=== PATIENT | male | born 1970 | race Caucasian/White ===

== ENCOUNTER 2018-04-26 20:54 | Inpatient (IN) | payer BC ==
[~2018-04-26 20:54] MED LIST: ISOVUE-370 76%-LOCM 1 ML ONE
[2018-04-26 21:18] LABS: Bilirubin Negative (Negative); Blood, Urine Negative (Negative); Clarity CLEAR (Clear); Glucose, Urine (Dipstick) Negative (Negative); Leukocyte Negative (Negative); Nitrite Negative (Negative); Protein, Urine (Dipstick) Negative (Neg-Trace); Specific Gravity, Urine 1.023 (1.002-1.036)
[2018-04-26] MEDS ORDERED: Ondansetron PF 4 MG/2 ML Vial ONE (21:41)
[2018-04-26] MEDS ORDERED: Pantoprazole 40 MG VIAL ONE (21:41)
[2018-04-26] MEDS ORDERED: Fentanyl 100 MCG/2 ML VIAL ONE (21:41)
[2018-04-26 21:42] LABS: #Eosinphils 0.1 thou/uL (0.0-0.7); #Lymphocytes 0.8 thou/uL (1.20-3.40); #Monocytes 0.8 thou/uL (0.11-0.59); #Neutrophils 5.3 thou/uL (1.40-6.50); %Monocytes 11.4 % (0.0-10.0); %Neutrophils 75.6 % (42.0-75.0); Hemoglobin 15.9 g/dL (14.0-18.0); Mean Corpuscular HGB CONC 33.1 g/dL (32.0-36.0); Mean Corpuscular Hemoglobin 29.7 pg (27.0-31.0); Mean Corpuscular Volume 89.8 fL (78.0-98.0); Mean Platelet Volume 7.4 fL (7.4-10.4); Platelet Count 214 thou/uL (130-400); RBC Distribution Width 12.6 % (11.5-14.5); Red Blood Cell (RBC) Count 5.36 mill/uL (4.70-6.10); White Blood Cell (WBC) Count 7.1 thou/uL (4.8-10.8)
[2018-04-26 21:56] LABS: ALT (SGPT) 17 U/L (8-55); AST (SGOT) 17 U/L (5-34); Albumin 3.9 g/dL (3.5-5.0); Alkaline Phosphatase 70 U/L (40-150); Anion Gap 8 mmol/L (10-20); BUN (Urea Nitrogen) 14 mg/dL (8.9-20.6); Bilirubin, Total 0.4 mg/dL (0.2-1.2); CK (CPK) 110 U/L (30-200); Calc. Creatinine Clearance 0 mL/min (70-130); Calcium 8.3 mg/dL (7.8-10.44); Carbon Dioxide 24 mmol/L (22-29); Chloride 107 mmol/L (98-107); Estimated GFR-MDRD 85; Globulin 2.9 g/dL (2.4-3.5); Glucose 122 mg/dL (70-105); Lipase 17 U/L (8-78); Potassium 3.3 mmol/L (3.5-5.1); Protein, Total 6.8 g/dL (6.0-8.3); Sodium 136 mmol/L (136-145)
[2018-04-26 22:00] LABS: CKMB 0.7 ng/mL (0-6.6); Troponin I Less than 0.010 ng/mL (< 0.028)
--- NOTE | 2018-04-26 22:22 | CT ---
CT ABDOMEN WITH CONTRAST CT PELVIS WITH CONTRAST 04/26/18 COMPARISON: 03/12/15. HISTORY: Abdominal pain. Vomiting and diarrhea. FINDINGS: ABDOMEN CT: Lung bases are clear. heart size is normal. No pericardial effusion. The descending thoracic aorta an d abdominal aorta has a normal caliber. No periaortic fat stranding. Portal vein is patent. Unremarkable gallbladder. Liver, spleen, pancreas and adrenal glands have appropriate enhancement. There is atrophy at the hea d of the pancreas. No gastrohepatic, retrocrural or periportal lymphadenopathy. Symmetric enhancement of the kidneys. Bilaterally, no obstructive uropathy. No mesenteric mass, lymphadenopathy, free air or free fluid. Umbilical hernia containing mesenteric fat. Limited evaluation of the alimentary canal by the lack of oral contrast. Gastric mucosa, duodenum, an d proximal jejunal loops are unremarkable. There are a few segments of distal jejunum and likely prox imal ileal small bowel loops which are distended and fluid-filled. Air fluid levels are noted. The di stal ileum and terminal ileum are decompressed. Ileocecal junction is normal. There is scattered feca l material in a nondistended, nondilated colon. There is diverticulosis, without evidence of divertic ulitis. Normal caliber appendix is identified. CT PELVIS: No mass, lymphadenopathy, free air or free fluid. Urinary bladder is grossly unremarkable. No lytic o r blastic lesions in the osseous structures. IMPRESSION: Prominent small bowel loops suggesting a partial or early obstructive process. POS: [facility]
[2018-04-26] MEDS ORDERED: Benzocaine 20% Spray 60 ML CAN ONE (22:48)
[2018-04-27] MEDS ORDERED: Ondansetron PF 4 MG/2 ML Vial IVP PRN (01:10)
[2018-04-27] MEDS ORDERED: Ondansetron ODT 4 MG TAB SL PRN (01:10)
[2018-04-27] MEDS: Fentanyl 100 MCG/2 ML VIAL SLOW IVP PRN ×2 (01:40→08:50)
[2018-04-27] MEDS: D5 1/2 NS w/20 mEq KCL 1,000 ML IV SCH ×5 (01:40→22:02)
[2018-04-27 02:50] VITALS: BMI 33.1
[2018-04-27] MEDS ORDERED: Acetaminophen 1,000 MG in Premix Bag 1 BAG IVPB PRN (09:34)
[2018-04-27] MEDS ORDERED: Potassium Chloride 40 MEQ in Premix Bag 1 BAG IVPB SCH (09:45)
[2018-04-27] MEDS ORDERED: Benzocaine 20% Spray 60 ML CAN PO SCH (10:15)
[2018-04-27] MEDS ORDERED: Chloraseptic Spray 180 ml Bottle PO PRN (10:15)
[2018-04-27] MEDS ORDERED: Pantoprazole 40 MG VIAL IVP SCH (10:15)
[2018-04-27] MEDS ORDERED: Cepastat Lozenges 1 LOZ PO PRN (10:15)
--- NOTE | 2018-04-27 11:17 | HP ---
CHIEF COMPLAINT: Abdominal pain. HISTORY: Mr. Julio is a 47-year-old man, who had sudden onset of abdominal pain, waking him from sleep last night around 10:30. He states that he had eaten normally that evening and had not been having any pain or nausea, but when he woke up, he was having severe crampy abdominal pain, radiating from the epigastrium downward as well as nausea. He came into the emergency room where he was diagnosed with a partial small-bowel obstruction by CT. He received pain medication, which helped with the pain. An NG tube was placed, but he had a lot of coughing and gagging with the NG tube placement and coughed it back out of his nose. He states that he has had some abdominal pain, although it is better since being admitted. He has had to use IV pain medication twice. He had several episodes of vomiting at home and describes the pain as sharp. He had hiatal hernia surgery several years ago at [facility] and this was a prolonged surgery, but he has not had any other episodes of obstruction. He has had diarrhea for the past few weeks and has continued to have soft bowel movements up until yesterday. He has passed a lot of gas through the night, but continues to have crampy abdominal pain. He denies hematemesis, coffee-ground emesis, melena, or hematochezia. He denies fevers or chills and states he has, otherwise, been healthy. PAST MEDICAL HISTORY: Reflux, which has been well managed since his hiatal hernia repair. PAST SURGICAL HISTORY: Bilateral inguinal hernia repair, robotic hiatal hernia repair, right leg and right shoulder surgery. PSYCHIATRIC HISTORY: He has a psychiatric history of anxiety and depression and is on escitalopram for this, who states that he used to have panic attacks, but these have been better since starting escitalopram, although he still has frequent episodes of anxiety. SOCIAL HISTORY: He does not smoke, drink, or use illicit drugs. He works as a work from home. ALLERGIES: He has adverse drug reactions to CODEINE and HYDROCODONE, which caused him to be very agitated and confused. OUTPATIENT MEDICATIONS: Include escitalopram and Aleve. REVIEW OF SYSTEMS: Ten-system review of systems is negative except per HPI and frequent anxiety. FAMILY HISTORY: Diabetes in his grandmother, colon cancer in an aunt, hypertension in his father and emphysema in his father. PHYSICAL EXAMINATION: VITAL SIGNS: Patient is afebrile, heart rate 63, respirations 14, 96% saturated on room air, blood pressure 142/83. GENERAL: Reveals an anxious-appearing man in no acute distress. He is not flushed or toxic in appearance. He is not jaundiced or icteric. HEENT: Unremarkable. NECK: Supple, without lymphadenopathy or thyroid nodules. HEART: Regular in its rate and rhythm without murmurs, rubs, or gallops. LUNGS: Clear to auscultation bilaterally. ABDOMEN: Soft and nondistended. Bowel sounds are diminished. He does not have any palpable masses or hernias. He denies any tenderness to palpation, but did just receive pain medications. EXTREMITIES: Warm and well-perfused without edema. NEUROLOGIC: No focal deficits. PSYCHIATRIC: Alert, oriented, and appropriate, but anxious. LABORATORY DATA: White count is normal at 7.1, hematocrit 48, platelets 214. Electrolytes are unremarkable except for potassium, which was low at 3.3 and is being replaced. Glucose is 122. LFTs and lipase are normal and urine is clear. I have reviewed the CT images and I agree with the written report. He appears to have a partial small-bowel obstruction. On my examination, it looks like the transition point is in the right lower quadrant, but it is difficult to determine. He also has a small umbilical hernia containing fat only, which is not clinically evident. ASSESSMENT: Partial small-bowel obstruction. He had an NG tube placed in the emergency room, but coughed that back out, but it was apparently not well secured to the nose and he was having a flare of his anxiety at that time, so declined replacement of the NG tube. He is feeling better this morning, but still having crampy abdominal pain, so I have recommended placement of the NG tube and he is agreeable to this as long as we give him something for his anxiety beforehand. The nurse is going to attempt this. We are going to try a period of bowel rest and decompression to see if we can avoid surgery. If his symptoms improve, we will likely get a contrast study tomorrow or the next day. If he worsens, then surgery will be considered. WILFREDO
[2018-04-27] MEDS: Potassium Chloride 20 MEQ in Premix Bag 1 BAG IVPB SCH ×2 (11:56→12:42)
[2018-04-27] MEDS: Lorazepam 2 MG/ML VIAL SLOW IVP PRN ×2 (11:56→22:24)
--- NOTE | 2018-04-27 14:29 | RAD ---
SINGLE VIEW OF THE UPPER ABDOMEN: COMPARISON: None. HISTORY: NG tube placement. FINDINGS: A single view of the upper abdomen shows a nonspecific, nonobstructed bowel gas pattern. An NG tube is seen in the stomach. IMPRESSION: Nasogastric tube located in the stomach. POS: [facility]
[2018-04-27] MEDS ORDERED: Fentanyl 100 MCG/2 ML VIAL SLOW IVP PRN ×2 (15:42→15:43)
[2018-04-27] MEDS ORDERED: Ondansetron PF 4 MG/2 ML Vial SLOW IVP PRN (15:43)
[2018-04-27] MEDS ORDERED: Clopidogrel Bisulfate 75 MG TAB ONE (18:19)
--- NOTE | 2018-04-28 08:07 | RAD ---
KUB: HISTORY: Small bowel obstruction. COMPARISON: 04/27/2018 FINDINGS: A single view of the abdomen shows a nonspecific, nonobstructive bowel gas pattern. Air is seen thro ughout the colon, to the level of the rectum. No suspicious calcifications are seen. IMPRESSION: Nonobstructive bowel gas pattern. POS: [facility]
[2018-04-28] MEDS ORDERED: Non-Formulary Item 1 EACH (Escitalopram Oxalate [Escitalopram Oxalate] 5 MG) PO SCH (09:00)
[2018-04-28] MEDS ORDERED: Pantoprazole 40 MG VIAL IVP SCH (10:00)
--- NOTE | 2018-04-28 10:15 | PDOC.GSPN ---
Surgery Progress Note: Subj - Subjective Narrative: Feels much better. No nausea or pain since yesterday, passing gas. Abdomen soft, nondistended, bowel sounds present. KUB nonobstructive bowel gas pattern A/P) PSBO, symptomatically better. SBFT today with gastrografin. Recheck K levels. Surgery Progress Note: Obj - Vital signs Vital signs: Vital Signs - Most Recent Temp Pulse Resp BP Pulse Ox 97.7 F 61 18 104/70 94 L 04/28/18 08:31 04/28/18 08:31 04/28/18 08:31 04/28/18 08:31 04/28/18 08:31 Surgery Progress Note: Results - Labs Result Diagrams: 04/26/18 21:27 04/26/18 21:27
[2018-04-28 10:48] LABS: Anion Gap 8 mmol/L (10-20); BUN (Urea Nitrogen) 5 mg/dL (8.9-20.6); Calc. Creatinine Clearance 175 mL/min (70-130); Calcium 8.7 mg/dL (7.8-10.44); Carbon Dioxide 24 mmol/L (22-29); Chloride 108 mmol/L (98-107); Estimated GFR-MDRD Greater than 90; Glucose 97 mg/dL (70-105); Magnesium 2.3 mg/dL (1.6-2.6); Phosphorus 2.1 mg/dL (2.3-4.7); Sodium 136 mmol/L (136-145)
[2018-04-28] MEDS: Escitalopram Oxalate 10 mg Tablet PO SCH (10:53)
[2018-04-28] MEDS: Pantoprazole 40 MG VIAL IVP SCH (10:55)
[2018-04-28] MEDS: D5 1/2 NS w/20 mEq KCL 1,000 ML IV SCH ×3 (13:28→21:05)
--- NOTE | 2018-04-28 15:16 | RAD ---
GASTROGRAFIN SMALL BOWEL: History: Evaluate for small bowel obstruction. Comparison: None. FINDINGS: Initial abdomen radiograph demonstrates prominent air filled loops of small bowel predominately in th e epigastric region. Nasogastric tube is noted. Patient was administered Gastrografin which opacifies prominent small bowel loops. Mid to distal small bowel loops are decompressed. There is contrast in the colon as early as 30 and 45 minute images. IMPRESSION: No evidence of high grade obstruction. POS: [facility]
[2018-04-29] MEDS: D5 1/2 NS w/20 mEq KCL 1,000 ML IV SCH (06:37)
[2018-04-29 08:13] VITALS: BP 106/68; TEMP 98
[2018-04-29] MEDS: Pantoprazole 40 MG VIAL IVP SCH (08:59)
[2018-04-29] MEDS: Escitalopram Oxalate 10 mg Tablet PO SCH (08:59)
--- NOTE | 2018-05-01 10:42 | DIS ---
DISCHARGE DIAGNOSIS: Small-bowel obstruction, resolved. PROCEDURES DURING ADMISSION: IV fluids, NG suction, small bowel follow through. HOSPITAL COURSE: The patient was admitted, given IV fluids and NG suction. He underwent a small bow el follow through that was unremarkable. He is now tolerating liquids well. His bowels are function ing well. He is now discharged home on his usual medications. We will follow up with Dr. Orourke in 2 weeks.
--- NOTE | 2018-05-08 16:58 | EKG ---
Test Reason : Blood Pressure : / mmHG Vent. Rate : 082 BPM Atrial Rate : 082 BPM P-R Int : 136 ms QRS Dur : 094 ms QT Int : 358 ms P-R-T Axes : 067 -12 -04 degrees QTc Int : 418 ms Normal sinus rhythm Voltage criteria for left ventricular hypertrophy Abnormal ECG Confirmed by LINDA MANN, KRISTA ([id number]), photography editor DAVID MACIAS ([id number]) on 05/08/2018 4:58:11 PM Referred By: Confirmed By:KRISTA MCKEON MD
== END 2018-04-29 11:30 | disposition home or self-care (01) | DRG 390 ==
LOC: ERS 20:54 → SURG B 22:37
PROVIDERS: ADMIT Surgery; ATTEND Surgery
PROC: 0D9670Z Drainage of Stomach with Drainage Device, Via Natural or Artificial Opening (ICD-10-PCS; principal; 2018-04-26)
DX: K56.600 Partial intestinal obstruction, unspecified as to cause (principal); K21.9 Gastro-esophageal reflux disease without esophagitis; F32.9 Major depressive disorder, single episode, unspecified; F41.9 Anxiety disorder, unspecified; Z88.5 Allergy status to narcotic agent; Z79.899 Other long term (current) drug therapy; Z79.1 Long term (current) use of non-steroidal anti-inflammatories (NSAID)
CPT/HCPCS: 36415; 74018; 74177; 74250; 80048; 80053; 81003; 82553; 83690; 83735; 84100; 84484; 85025; 93005; 96361; 96374; 96375; C9113; J2060; J2405; J3010; J3480

== ENCOUNTER 2018-08-04 11:45 | Emergency (ER) | payer BC ==
[2018-08-04 12:37] LABS: #Eosinphils 0.2 thou/uL (0.0-0.7); #Monocytes 0.6 thou/uL (0.11-0.59); #Neutrophils 4.6 thou/uL (1.40-6.50); %Basophils 0.4 % (0.0-1.0); %Lymphocytes 15.6 % (21.0-51.0); %Monocytes 9.6 % (0.0-10.0); %Neutrophils 71.4 % (42.0-75.0); Hemoglobin 16.9 g/dL (14.0-18.0); Mean Corpuscular HGB CONC 32.8 g/dL (32.0-36.0); Mean Corpuscular Hemoglobin 29.4 pg (27.0-31.0); Mean Corpuscular Volume 89.6 fL (78.0-98.0); Mean Platelet Volume 7.3 fL (7.4-10.4); Platelet Count 234 thou/uL (130-400); RBC Distribution Width 12.7 % (11.5-14.5); Red Blood Cell (RBC) Count 5.73 mill/uL (4.70-6.10); White Blood Cell (WBC) Count 6.5 thou/uL (4.8-10.8)
[2018-08-04 12:58] LABS: ALT (SGPT) 21 U/L (8-55); AST (SGOT) 19 U/L (5-34); Albumin 4.3 g/dL (3.5-5.0); Alkaline Phosphatase 91 U/L (40-150); Anion Gap 9 mmol/L (10-20); BUN (Urea Nitrogen) 13 mg/dL (8.9-20.6); Bilirubin, Total 0.4 mg/dL (0.2-1.2); Calc. Creatinine Clearance 0 mL/min (70-130); Calcium 9.6 mg/dL (7.8-10.44); Carbon Dioxide 26 mmol/L (22-29); Chloride 106 mmol/L (98-107); Estimated GFR-MDRD Greater than 90; Globulin 3.1 g/dL (2.4-3.5); Glucose 86 mg/dL (70-105); Lipase 24 U/L (8-78); Potassium 4.3 mmol/L (3.5-5.1); Protein, Total 7.4 g/dL (6.0-8.3); Sodium 137 mmol/L (136-145)
[2018-08-04 13:48] LABS: Bilirubin Negative (Negative); Blood, Urine Negative (Negative); Clarity CLEAR (Clear); Glucose, Urine (Dipstick) Negative (Negative); Leukocyte Negative (Negative); Nitrite Negative (Negative); Protein, Urine (Dipstick) Negative (Neg-Trace); Specific Gravity, Urine 1.018 (1.002-1.036); pH, Urine 6.5 (5.0-9.0)
== END 2018-08-04 14:20 | disposition home or self-care (01) ==
LOC: ERS 11:45
DX: R11.0 Nausea (principal); R63.4 Abnormal weight loss; K21.9 Gastro-esophageal reflux disease without esophagitis; F41.9 Anxiety disorder, unspecified; F32.9 Major depressive disorder, single episode, unspecified
CPT/HCPCS: 80053; 81003; 83690; 85025; 93005

== ENCOUNTER 2018-08-06 10:47 | Observation (INO) | payer BC ==
--- NOTE | 2018-08-06 11:21 | RAD ---
CHEST 1 VIEW: HISTORY: Nausea. Dyspnea. COMPARISON: 11/25/2006. FINDINGS: Cardiac silhouette is magnified by projection and upper limits of normal in size. Pulmonary vasculat ure is unremarkable. Mediastinum is midline. No lobar consolidation or evidence of pneumothorax. IMPRESSION: No active cardiopulmonary abnormalities are demonstrated. POS: [facility]
[2018-08-06 11:42] LABS: #Eosinphils 0.2 thou/uL (0.0-0.7); #Lymphocytes 1.3 thou/uL (1.20-3.40); #Monocytes 0.5 thou/uL (0.11-0.59); #Neutrophils 4.1 thou/uL (1.40-6.50); %Basophils 0.4 % (0.0-1.0); %Eosinophils 3.5 % (0.0-10.0); %Lymphocytes 20.5 % (21.0-51.0); %Monocytes 8.4 % (0.0-10.0); %Neutrophils 67.2 % (42.0-75.0); Hemoglobin 16.8 g/dL (14.0-18.0); Mean Corpuscular HGB CONC 33.1 g/dL (32.0-36.0); Mean Corpuscular Hemoglobin 29.6 pg (27.0-31.0); Mean Corpuscular Volume 89.3 fL (78.0-98.0); Mean Platelet Volume 7.2 fL (7.4-10.4); Platelet Count 241 thou/uL (130-400); RBC Distribution Width 12.6 % (11.5-14.5); Red Blood Cell (RBC) Count 5.69 mill/uL (4.70-6.10); White Blood Cell (WBC) Count 6.2 thou/uL (4.8-10.8)
--- NOTE | 2018-08-06 11:52 | CT ---
CT HEAD NONCONTRAST: HISTORY: Altered mental status. Syncope. COMPARISON: 05/15/2010. FINDINGS: There is no evidence of acute intracranial hemorrhage or infarct. Ventricles appear normal in size, shape, and position. There is no mass effect or shift of midline structures. IMPRESSION: No acute intracranial abnormalities are demonstrated. POS: [facility]
[2018-08-06] MEDS ORDERED: Acetaminophen 325 MG TAB PO PRN ×2 (12:00→15:42)
[2018-08-06] MEDS ORDERED: Ondansetron PF 4 MG/2 ML Vial IVP PRN ×2 (12:00→15:42)
[2018-08-06] MEDS ORDERED: Ondansetron ODT 4 MG TAB SL PRN (12:00)
[2018-08-06 12:07] LABS: ALT (SGPT) 20 U/L (8-55); AST (SGOT) 17 U/L (5-34); Albumin 4.4 g/dL (3.5-5.0); Alkaline Phosphatase 91 U/L (40-150); Anion Gap 14 mmol/L (10-20); BUN (Urea Nitrogen) 11 mg/dL (8.9-20.6); Bilirubin, Total 0.4 mg/dL (0.2-1.2); Calc. Creatinine Clearance 0 mL/min (70-130); Calcium 9.6 mg/dL (7.8-10.44); Carbon Dioxide 23 mmol/L (22-29); Chloride 106 mmol/L (98-107); Estimated GFR-MDRD Greater than 90; Globulin 3.1 g/dL (2.4-3.5); Glucose 89 mg/dL (70-105); Potassium 4.1 mmol/L (3.5-5.1); Protein, Total 7.5 g/dL (6.0-8.3); Sodium 139 mmol/L (136-145)
[2018-08-06] MEDS ORDERED: Aspirin Chewable 81 MG TAB ONE (12:27)
[2018-08-06 12:46] LABS: Bilirubin Negative (Negative); Blood, Urine Negative (Negative); Clarity CLEAR (Clear); Glucose, Urine (Dipstick) Negative (Negative); Leukocyte Negative (Negative); Nitrite Negative (Negative); Protein, Urine (Dipstick) Negative (Neg-Trace); Specific Gravity, Urine 1.022 (1.002-1.036); pH, Urine 7.5 (5.0-9.0)
[2018-08-06 12:56] LABS: Amphetamine Not Detected (NotDetected); Barbiturates Screen Not Detected (NotDetected); Benzodiazepine Screen Not Detected (NotDetected); Cocaine Metabolite Screen Not Detected (NotDetected); Medtox Control Line Valid? VALID (VALID); Medtox Reader # READER 4; Methadone Not Detected (NotDetected); Methamphetamine Not Detected (NotDetected); Opiate Screen Not Detected (NotDetected); Oxycodone Screen Not Detected (NotDetected); Phencyclidine (PCP) Not Detected (NotDetected); THC/Cannabinoid Screen Not Detected (NotDetected); Tricyclic Screen Not Detected (NotDetected)
--- NOTE | 2018-08-06 13:29 | HP ---
PRIMARY CARE PHYSICIAN: [facility] Call admission. REASON FOR ADMISSION: Syncope. HISTORY OF PRESENT ILLNESS: A 47-year-old male, who has underlying history of depression, who presented to emergency room on Tuesday, at that time he was having nausea, vomiting, dizziness, confusion, and weakness. At that time, the patient had no investigation and the patient was discharged home because all workup were negative. Today, the patient had 2 syncopal episodes per . The patient continued to complain of headache over occiput. He denies any unsteadiness. He denies any tinnitus. He denies any fever or chills. He denies any current nausea or vomiting. He does not have any chest pain or palpitation. He denies any abdominal pain, constipation, diarrhea, melena, or hematochezia. Currently, the patient's only complaint is some headache on occiput. He feels weak. He was confused on Tuesday. He was having hard time finding things. His speech was almost always normal. REVIEW OF SYSTEMS: CONSTITUTIONAL: Negative for weight loss or gain, ability to conduct usual activities. SKIN: Negative for rash, itching. EYES: Negative for double vision, pain. ENT/MOUTH: Negative for nose bleeding, neck stiffness, pain, tenderness. CARDIOVASCULAR: Negative for palpitations, dyspnea on exertion, orthopnea. RESPIRATORY: Negative for shortness of breath, wheezing, cough, hemoptysis, fever or night sweats. GASTROINTESTINAL: Negative for poor appetite, abdominal pain, heartburn, nausea, vomiting, constipation, or diarrhea. GENITOURINARY: Negative for urgency, frequency, dysuria, nocturia. MUSCULOSKELETAL: Negative for pain, swelling. NEUROLOGIC/PSYCHIATRIC: Negative for anxiety, depression. ALLERGY/IMMUNOLOGIC: Negative for skin rash, bleeding tendency. Please see my HPI for pertinent positives and negatives. All other review of systems reviewed and negative except as mentioned in HPI. PAST MEDICAL HISTORY: Gastroesophageal reflux disease, history of bowel obstruction, and history of hypertension. PAST SURGICAL HISTORY: Bilateral hiatal hernia repair, steel sabine in right leg, and right shoulder surgery. PAST PSYCHIATRIC HISTORY: Anxiety and depression. SOCIAL HISTORY: The patient is , lives at home with . No history of tobacco, alcohol, or illicit drug abuse. FAMILY HISTORY: No family history of coronary artery disease, stroke, or cancer. ALLERGIES: THE PATIENT IS ALLERGIC TO CODEINE AND HYDROCODONE. CURRENT HOME MEDICATIONS: Lexapro 5 mg p.o. daily. EMERGENCY ROOM COURSE: Reviewed. PHYSICAL EXAMINATION: VITAL SIGNS: Currently, blood pressure 135/82, pulse 68, respiratory rate 16, temperature 98.2, and saturation 97% on room air. Weight 105.2 kg. GENERAL: The patient is currently alert and awake, in no obvious acute distress. HEENT: Head; normocephalic and atraumatic. Eyes; pupils round and reactive to light. Extraocular muscle intact. No nystagmus. ENT; oropharynx within normal limits. Moist mucous membranes. No oral lesion. No pharyngeal erythema. No exudate. NECK: Supple. No JVD. No thyromegaly. No carotid bruit. No jugular venous distention. LUNGS: Clear to auscultation without any rhonchi or rales. CARDIAC: S1 and S2, regular without any murmur. ABDOMEN: Soft. Bowel sounds present. Nontender. Nondistended. No organomegaly. No mass. No suprapubic tenderness. BACK: Unremarkable. No CVA tenderness. EXTREMITIES: Upper extremities; passive movement of all joints is normal. Lower extremity, no edema. Good distal pulsation. SKIN: No skin rash. HEMATOLOGIC: No lymphadenopathy. NEUROLOGIC: The patient is alert and oriented x3. Cranial nerve 2 through 12 intact. Motor 5/5 in all four limbs. Sensation bilaterally symmetrical. No cerebellar sign. Reflexes bilaterally symmetrical. Speech normal. Plantar bilateral flexor. SIGNIFICANT LABORATORY DATA: CT of brain based on my review, no acute intracranial process. Chest x-ray based on my review, no acute cardiopulmonary process. BMP; sodium 139, potassium 4.1, chloride 106, carbon dioxide 23, anion gap 14, BUN 11, creatinine 0.84, glucose 89, calcium 9.6. LFT; protein 7.5, albumin 4.4, AST 17, ALT 20, alkaline phosphatase 91. CBC; WBC 6.2, hemoglobin 16.8, and platelet 241. Troponin negative. Urinalysis normal. EKG showing normal sinus rhythm. ASSESSMENT AND PLAN: 1. Recurrent syncope, unexplained. At this point, the patient will need more further investigation. We will do MRI of brain, carotid Doppler, echocardiography, cardiac monitoring, and orthostatic vitals to define any etiology of syncope. We will check lipid profile and start aspirin 81 mg p.o. daily. We will check urine drug screen. 2. Depression. We will continue Lexapro 5 mg p.o. daily. 3. Deep venous thrombosis prophylaxis not needed because we are expecting discharge tomorrow. After all investigation if negative, discharge. 4. Gastrointestinal prophylaxis, Pepcid 20 mg p.o. b.i.d. CODE STATUS: The patient is full code. DISPOSITION PLAN: Based on above-mentioned investigation result, likely within 24 hours. Job ID: [id number]
[2018-08-06] MEDS ORDERED: Eucerin (Mineral Oil/Petrolatum,White) 30 gm Jar TOP PRN (15:42)
[2018-08-06] MEDS ORDERED: Sodium Chloride 0.65% Nasal 44 ML BOT EA NARE PRN (15:42)
[2018-08-06] MEDS ORDERED: Zolpidem Tartrate 5 MG TAB PO PRN (15:42)
[2018-08-06] MEDS ORDERED: Senokot S 8.6-50 MG TAB PO PRN (15:42)
[2018-08-06] MEDS ORDERED: Loperamide HCl 2 MG CAP PO PRN (15:42)
[2018-08-06] MEDS ORDERED: Artificial Tears 18 DROP/0.9 ML EA EYE PRN (15:42)
[2018-08-06] MEDS ORDERED: Loratadine 10 MG TAB PO PRN (15:42)
[2018-08-06] MEDS ORDERED: Cepastat Lozenges 1 LOZ PO PRN (15:42)
[2018-08-06] MEDS ORDERED: Ondansetron ODT 4 MG TAB PO PRN (15:42)
[2018-08-06] MEDS ORDERED: Bisacodyl 10 MG SUPP PR PRN (15:42)
[2018-08-06] MEDS ORDERED: Diabetic Tussin 200 MG/10 ML UDCUP PO PRN (15:42)
[2018-08-06] MEDS ORDERED: Calcium Carbonate 500 MG ChewTAB PO PRN (15:42)
[2018-08-06] MEDS ORDERED: hydrALAZINE 20 MG/ML VIAL SLOW IVP PRN (15:42)
[2018-08-06 15:45] VITALS: BMI 32.0
[2018-08-06] MEDS: Famotidine 20 MG TAB PO SCH (19:26)
--- NOTE | 2018-08-06 22:51 | ULT ---
ULTRASOUND CAROTID DOPPLER: Comparison: 2009 Technique: Real-time grayscale, color doppler and spectral analysis of the extracranial carotid and v ertebral arteries was performed. FINDINGS: Antegrade flow of both vertebral arteries. No elevated peak systolic velocities within the internal c arotid arteries. Mild atherosclerotic plaque, both carotid bulbs. IMPRESSION: No hemodynamically significant stenosis. POS: [facility]
[2018-08-07 05:13] LABS: #Basophils 0.1 thou/uL (0.0-0.2); #Eosinphils 0.3 thou/uL (0.0-0.7); #Lymphocytes 1.8 thou/uL (1.20-3.40); #Monocytes 0.7 thou/uL (0.11-0.59); #Neutrophils 4.3 thou/uL (1.40-6.50); %Basophils 0.9 % (0.0-1.0); %Lymphocytes 25.5 % (21.0-51.0); %Monocytes 9.8 % (0.0-10.0); %Neutrophils 59.9 % (42.0-75.0); Hemoglobin 15.5 g/dL (14.0-18.0); Mean Corpuscular Hemoglobin 29.6 pg (27.0-31.0); Mean Corpuscular Volume 89.7 fL (78.0-98.0); Mean Platelet Volume 7.5 fL (7.4-10.4); Platelet Count 227 thou/uL (130-400); RBC Distribution Width 12.6 % (11.5-14.5); Red Blood Cell (RBC) Count 5.22 mill/uL (4.70-6.10); White Blood Cell (WBC) Count 7.2 thou/uL (4.8-10.8)
[2018-08-07 05:48] LABS: Anion Gap 11 mmol/L (10-20); BUN (Urea Nitrogen) 10 mg/dL (8.9-20.6); Calc. Creatinine Clearance 151 mL/min (70-130); Calcium 9.2 mg/dL (7.8-10.44); Carbon Dioxide 23 mmol/L (22-29); Cardiac Risk 5.3 (Less than 4.5); Chloride 106 mmol/L (98-107); Cholesterol 207 mg/dl (< 200 Desired); Estimated GFR-MDRD Greater than 90; Glucose 85 mg/dL (70-105); HDL Cholesterol 39 mg/dL (>60 Neg Risk); LDL Cholesterol, Calculated 143 mg/dL; Potassium 3.7 mmol/L (3.5-5.1); Sodium 136 mmol/L (136-145); Triglycerides 127 mg/dL (Less than 150)
[2018-08-07] MEDS: Famotidine 20 MG TAB PO SCH ×2 (08:51→19:58)
[2018-08-07] MEDS: Aspirin Chewable 81 MG TAB PO SCH (08:51)
[2018-08-07] MEDS: Escitalopram Oxalate 10 mg Tablet PO SCH (08:51)
--- NOTE | 2018-08-07 09:45 | PDOC.PN ---
- Subjective Encounter Start Date: 08/07/18 Encounter Start Time: 08:30 -: old records requested/rev Patient seen and examined. No new complaints. No overnight events - Objective Resuscitation Status - Order Detail: 08/06/18 12:19 Resuscitation Status Routine Resuscitation Status: FULL: Full Resuscitation MAR Reviewed: Yes Vital Signs & Weight: Vital Signs (12 hours) Temp Pulse Resp BP BP Pulse Ox 08/07/18 08:00 98.4 F 82 20 106/60 92 L 08/07/18 03:26 97.6 F 59 L 16 129/71 93 L Weight Weight 229 lb 6.4 oz I&O: 08/06/18 08/07/18 08/08/18 06:59 06:59 06:59 Intake Total 580 Balance 580 Result Diagrams: 08/07/18 04:32 08/07/18 04:32 Radiology Reviewed by me: Yes EKG Reviewed by me: Yes (nsr) Phys Exam - Physical Examination Constitutional: NAD HEENT: PERRLA, moist MMs, sclera anicteric Neck: no JVD, supple Respiratory: no wheezing, no rales, no rhonchi Cardiovascular: RRR, no significant murmur, no rub Gastrointestinal: soft, non-tender, no distention, positive bowel sounds Musculoskeletal: no edema, pulses present Neurological: non-focal, normal sensation, moves all 4 limbs Lymphatic: no nodes Psychiatric: normal affect, A&O x 3 Skin: no rash, normal turgor Dx/Plan (1) Syncope Code(s): R55 - SYNCOPE AND COLLAPSE Status: Acute (2) Anxiety and depression Code(s): F41.9 - ANXIETY DISORDER, UNSPECIFIED; F32.9 - MAJOR DEPRESSIVE DISORDER, SINGLE EPISODE, UNSPECIFIED Status: Chronic (3) Obesity (BMI 30.0-34.9) Code(s): E66.9 - OBESITY, UNSPECIFIED Status: Chronic - Plan cont current plan of care * medication reviewed as below * symptomatic treatment * today mRI and echo * possible discharge later today. Review of Systems - Review of Systems ENT: negative: Ear Pain, Ear Discharge, Nose Pain, Nose Discharge, Nose Congestion, Mouth Pain, Mouth Swelling, Throat Pain, Throat Swelling, Other Respiratory: negative: Cough, Dry, Shortness of Breath, Hemoptysis, SOB with Excertion, Pleuritic Pain, Sputum, Wheezing Cardiovascular: negative: chest pain, palpitations, orthopnea, paroxysmal nocturnal dyspnea, edema, light headedness, other Gastrointestinal: negative: Nausea, Vomiting, Abdominal Pain, Diarrhea, Constipation, Melena, Hematochezia, Other Genitourinary: negative: Dysuria, Frequency, Incontinence, Hematuria, Retention , Other Musculoskeletal: negative: Neck Pain, Shoulder Pain, Arm Pain, Back Pain, Hand Pain, Leg Pain, Foot Pain, Other - Medications/Allergies Allergies/Adverse Reactions: Allergies Allergy/AdvReac Type Severity Reaction Status Date / Time codeine Allergy Verified 08/06/18 16:09 hydrocodone Allergy Verified 08/06/18 16:09 Medications: Current Medications Acetaminophen (Tylenol) 650 mg PO Q4H PRN PRN Reason: Headache/Fever/Mild Pain (1-3) Last Admin: 08/06/18 19:26 Dose: 650 mg Artificial Tears (Tears Naturale) 2 drop EA EYE PRN PRN PRN Reason: Dry Eyes Aspirin (Aspirin Chewable) 81 mg PO DAILY [facility] Last Admin: 08/07/18 08:51 Dose: 81 mg Bisacodyl (Dulcolax) 10 mg MS DAILYPRN PRN PRN Reason: Constipation Calcium Carbonate (Tums) 1,000 mg PO Q4H PRN PRN Reason: Heartburn or Indigestion Escitalopram Oxalate (Lexapro) 5 mg PO DAILY [facility] Last Admin: 08/07/18 08:51 Dose: 5 mg Famotidine (Pepcid) 20 mg PO BID [facility] Last Admin: 08/07/18 08:51 Dose: 20 mg Guaifenesin (Robitussin Sf) 200 mg PO Q4H PRN PRN Reason: Cough Hydralazine HCl (Apresoline) 10 mg SLOW IVP Q4H PRN PRN Reason: SBP > 180 and HR < 70 Loperamide HCl (Imodium) 2 mg PO PRN PRN PRN Reason: Diarrhea/Loose Stools Loratadine (Claritin) 10 mg PO DAILYPRN PRN PRN Reason: Sinus Symptoms Mineral Oil/White Petrolatum (Eucerin Cream) 0 gm TOP BIDPRN PRN PRN Reason: Dry Skin Ondansetron HCl (Zofran Odt) 4 mg PO Q6H PRN PRN Reason: Nausea/Vomiting Ondansetron HCl (Zofran) 4 mg IVP Q6H PRN PRN Reason: Nausea/Vomiting Senna/Docusate Sodium (Senokot S) 2 tab PO BID PRN PRN Reason: Constipation Sodium Chloride ([place] Nasal [place] 0.65%) 0 ml EA NARE QIDPRN PRN PRN Reason: Nasal Congestion Throat Lozenges (Cepastat Lozenges) 1 olivia PO Q2H PRN PRN Reason: Sore Throat Zolpidem Tartrate (Ambien) 5 mg PO HSPRN PRN PRN Reason: Insomnia
[2018-08-07] MEDS: Lorazepam 2 MG/ML VIAL SLOW IVP SCH ×2 (14:12→14:36)
[2018-08-07] MEDS ORDERED: Lorazepam 2 MG/ML VIAL ONE (14:30)
--- NOTE | 2018-08-07 15:18 | DIS ---
DATE OF ADMISSION: 08/06/2018 DATE OF DISCHARGE: 08/07/2018 PRIMARY CARE PHYSICIAN: Dr. Shashank Carrillo. DISCHARGE DISPOSITION: Home. PRIMARY DISCHARGE DIAGNOSIS: Syncope, unexplained. SECONDARY DISCHARGE DIAGNOSES: 1. Anxiety and depression. 2. obesity with BMI 32. PRIMARY PROCEDURE/OPERATION: None. RADIOLOGICAL INVESTIGATION: Chest x-ray normal. CT brain negative. Carotid Doppler negative. MRI brain is done and result is pending. Echocardiography done and result is pending. SIGNIFICANT LABORATORY DATA: CBC normal. BMP normal. LFT normal. LDL 143. Urinalysis normal. Urine drug screen negative. DISCHARGE MEDICATIONS: The patient will continue his Lexapro 5 mg p.o. daily. The patient will follow up with primary care physician after dietary and exercise trial if he needs any statin therapy. CONTRAINDICATION: None. CODE STATUS: Full code. INPATIENT PLASTICS WORKER: None. ALLERGIES: HYDROCODONE AND CODEINE. DISCHARGE PLAN: Posthospital, the patient will follow up with primary care physician. HOSPITAL COURSE: A 47-year-old male with above-mentioned medical problem. The patient admitted for syncopal workup. Please see my HPI for further details. All investigation done in the hospital came back negative including telemetry. His syncope is unexplained. By the time of dictation, MRI report and echocardiography report are pending. If these tests are negative, then we will consider discharging him home later on today. Dietary instruction is given for his high cholesterol, and if needed, he will start statin therapy after followup with primary care physician. Please see my progress note from today for further detail. Job ID: [id number]
--- NOTE | 2018-08-07 16:12 | MRI ---
MRI BRAIN: HISTORY: Syncope. Head trauma. COMPARISON: 08/07/2018 TECHNIQUE: Multiplanar, multisequence, noncontrast-enhanced MR images of the brain obtained. FINDINGS: Noncontrast-enhanced MR images of the brain demonstrate motion artifact. No evidence of acute intrac ranial masses, hemorrhages, strokes, or contusions seen. Ventricles are of normal size. No evidence of areas of diffusion restriction seen. No significant evidence of acute intracranial pathology seen. IMPRESSION: 1. Deep white matter ischemic changes and motion artifact. 2. No evidence of acute intracranial pathology seen. POS: [facility]
[2018-08-08 08:00] VITALS: BP 108/58; TEMP 98.2
[2018-08-08] MEDS: Escitalopram Oxalate 10 mg Tablet PO SCH (08:33)
[2018-08-08] MEDS: Aspirin Chewable 81 MG TAB PO SCH (08:33)
[2018-08-08] MEDS: Famotidine 20 MG TAB PO SCH (08:33)
--- NOTE | 2018-08-08 09:34 | PDOC.PN ---
- Subjective Encounter Start Date: 08/08/18 Encounter Start Time: 07:30 Patient seen and examined. No new complaints. No overnight events - Objective Resuscitation Status - Order Detail: 08/06/18 12:19 Resuscitation Status Routine Resuscitation Status: FULL: Full Resuscitation MAR Reviewed: Yes Vital Signs & Weight: Vital Signs (12 hours) Temp Pulse Resp BP Pulse Ox 08/08/18 07:32 98.2 F 64 15 108/58 L 93 L 08/08/18 03:20 97.5 F L 57 L 16 111/65 93 L Weight Weight 229 lb 6.4 oz I&O: 08/07/18 08/08/18 08/09/18 06:59 06:59 06:59 Intake Total 580 600 Balance 580 600 Result Diagrams: 08/07/18 04:32 08/07/18 04:32 Radiology Reviewed by me: Yes (echo and MRI reviewed) EKG Reviewed by me: Yes (nsr) Phys Exam - Physical Examination Constitutional: NAD HEENT: PERRLA, moist MMs, sclera anicteric Neck: no JVD, supple Respiratory: no wheezing, no rales, no rhonchi Cardiovascular: RRR, no significant murmur, no rub Gastrointestinal: soft, non-tender, no distention, positive bowel sounds Musculoskeletal: no edema, pulses present Neurological: non-focal, normal sensation, moves all 4 limbs Lymphatic: no nodes Psychiatric: normal affect, A&O x 3 Skin: no rash, normal turgor Dx/Plan (1) Syncope Code(s): R55 - SYNCOPE AND COLLAPSE Status: Acute (2) Anxiety and depression Code(s): F41.9 - ANXIETY DISORDER, UNSPECIFIED; F32.9 - MAJOR DEPRESSIVE DISORDER, SINGLE EPISODE, UNSPECIFIED Status: Chronic (3) Obesity (BMI 30.0-34.9) Code(s): E66.9 - OBESITY, UNSPECIFIED Status: Chronic - Plan cont current plan of care * MRI is negative for acute process * Echo showed mild/moderate MR, will need follow up * medication reviewed as below * symptomatic treatment * stable for discharge * see discharge summery. Review of Systems - Review of Systems ENT: negative: Ear Pain, Ear Discharge, Nose Pain, Nose Discharge, Nose Congestion, Mouth Pain, Mouth Swelling, Throat Pain, Throat Swelling, Other Respiratory: negative: Cough, Dry, Shortness of Breath, Hemoptysis, SOB with Excertion, Pleuritic Pain, Sputum, Wheezing Cardiovascular: negative: chest pain, palpitations, orthopnea, paroxysmal nocturnal dyspnea, edema, light headedness, other Gastrointestinal: negative: Nausea, Vomiting, Abdominal Pain, Diarrhea, Constipation, Melena, Hematochezia, Other Genitourinary: negative: Dysuria, Frequency, Incontinence, Hematuria, Retention , Other Musculoskeletal: negative: Neck Pain, Shoulder Pain, Arm Pain, Back Pain, Hand Pain, Leg Pain, Foot Pain, Other - Medications/Allergies Allergies/Adverse Reactions: Allergies Allergy/AdvReac Type Severity Reaction Status Date / Time codeine Allergy Verified 08/06/18 16:09 hydrocodone Allergy Verified 08/06/18 16:09 Medications: Current Medications Acetaminophen (Tylenol) 650 mg PO Q4H PRN PRN Reason: Headache/Fever/Mild Pain (1-3) Last Admin: 08/06/18 19:26 Dose: 650 mg Artificial Tears (Tears Naturale) 2 drop EA EYE PRN PRN PRN Reason: Dry Eyes Aspirin (Aspirin Chewable) 81 mg PO DAILY [facility] Last Admin: 08/08/18 08:33 Dose: 81 mg Bisacodyl (Dulcolax) 10 mg [place] DAILYPRN PRN PRN Reason: Constipation Calcium Carbonate (Tums) 1,000 mg PO Q4H PRN PRN Reason: Heartburn or Indigestion Escitalopram Oxalate (Lexapro) 5 mg PO DAILY [facility] Last Admin: 08/08/18 08:33 Dose: 5 mg Famotidine (Pepcid) 20 mg PO BID [facility] Last Admin: 08/08/18 08:33 Dose: 20 mg Guaifenesin (Robitussin Sf) 200 mg PO Q4H PRN PRN Reason: Cough Hydralazine HCl (Apresoline) 10 mg SLOW IVP Q4H PRN PRN Reason: SBP > 180 and HR < 70 Loperamide HCl (Imodium) 2 mg PO PRN PRN PRN Reason: Diarrhea/Loose Stools Loratadine (Claritin) 10 mg PO DAILYPRN PRN PRN Reason: Sinus Symptoms Mineral Oil/White Petrolatum (Eucerin Cream) 0 gm TOP BIDPRN PRN PRN Reason: Dry Skin Ondansetron HCl (Zofran Odt) 4 mg PO Q6H PRN PRN Reason: Nausea/Vomiting Ondansetron HCl (Zofran) 4 mg IVP Q6H PRN PRN Reason: Nausea/Vomiting Senna/Docusate Sodium (Senokot S) 2 tab PO BID PRN PRN Reason: Constipation Sodium Chloride ([place] Nasal [place] 0.65%) 0 ml EA NARE QIDPRN PRN PRN Reason: Nasal Congestion Throat Lozenges (Cepastat Lozenges) 1 olivia PO Q2H PRN PRN Reason: Sore Throat Zolpidem Tartrate (Ambien) 5 mg PO HSPRN PRN PRN Reason: Insomnia
--- NOTE | 2018-08-08 11:11 | DIS ---
DATE OF ADMISSION: 08/06/2018 DATE OF DISCHARGE: 08/08/2018 ADDENDUM: The patient was planned for discharge yesterday, but MRI and echocardiography were pending. Today, we have received MRI report and it showed only deep white matter ischemic changes without any acute process and echocardiography showed [id number] MR that needs to be followed up as an outpatient basis. The patient remained fine overnight and today, I have seen and examined, dietary instruction about dyslipidemia given. The patient will follow up with primary care physician. Job ID: [id number]
== END 2018-08-08 10:43 | disposition home or self-care (01) ==
LOC: ERS 10:47 → 2SW 12:19
PROVIDERS: ADMIT Internal Medicine; ATTEND Internal Medicine
DX: R55 Syncope and collapse (principal); I10 Essential (primary) hypertension; F41.9 Anxiety disorder, unspecified; F32.9 Major depressive disorder, single episode, unspecified; K21.9 Gastro-esophageal reflux disease without esophagitis; E66.9 Obesity, unspecified; Z68.32 Body mass index [BMI] 32.0-32.9, adult; Z88.5 Allergy status to narcotic agent; Z79.899 Other long term (current) drug therapy; Z98.890 Other specified postprocedural states
CPT/HCPCS: 36415; 70450; 70551; 71045; 80048; 80053; 80061; 80306; 81003; 84146; 84484; 85025; 90471; 90686; 93005; 93306; 93880; 96374; G0008; G0378; J2060

== ENCOUNTER 2019-07-07 21:30 | Emergency (ER) | payer OTHER, BC ==
[2019-07-07] MEDS ORDERED: Morphine 4 MG/ML VIAL ONE (22:10)
--- NOTE | 2019-07-07 22:36 | RAD ---
XR Knee Rt 4 View STANDARD: 07/07/2019 10:09 PM CLINICAL INDICATION: Fall COMPARISON: None. FINDINGS: Bones: No acute fracture is demonstrated. There is healed fracture deformity of the proximal fibular shaft. There is an intramedullary sabine within the tibia that projects beyond the [id number]. Joints: No joint capsular distention.. Soft Tissue: There is soft tissue swelling involving the anterior right knee.. IMPRESSION: No acute osseous abnormality..
== END 2019-07-07 23:01 | disposition home or self-care (01) ==
LOC: ERS 21:30
DX: S83.91XA Sprain of unspecified site of right knee, initial encounter (principal); I10 Essential (primary) hypertension; K21.9 Gastro-esophageal reflux disease without esophagitis; F41.9 Anxiety disorder, unspecified; F32.9 Major depressive disorder, single episode, unspecified; F17.210 Nicotine dependence, cigarettes, uncomplicated; Z79.899 Other long term (current) drug therapy; W01.0XXA Fall on same level from slipping, tripping and stumbling without subsequent striking against object, initial encounter; Y92.69 Other specified industrial and construction area as the place of occurrence of the external cause; Y99.0 Civilian activity done for income or pay
CPT/HCPCS: 96372; J2270

== ENCOUNTER 2023-01-05 18:22 | Emergency (ER) | payer BC ==
[~2023-01-05 18:22] MED LIST changes: -ISOVUE-370 76%-LOCM 1 ML ONE; +Iopamidol-370 76% 500 ML MDV (1 ML CHARGE) ONE
[2023-01-05] MEDS ORDERED: Ondansetron PF 4 MG/2 ML Vial ONE ×2 (18:53→20:30)
[2023-01-05] MEDS ORDERED: Acetaminophen 500 MG TAB ONE (19:10)
[2023-01-05 19:17] LABS: #Eosinphils 0.1 thou/uL (0.0-0.7); #Monocytes 0.6 thou/uL (0.11-0.59); %Basophils 0.2 % (0.0-1.0); %Eosinophils 1.1 % (0.0-10.0); %Monocytes 4.8 % (0.0-10.0); %Neutrophils 86.5 % (42.0-75.0); Mean Corpuscular HGB CONC 35.3 g/dL (32.0-36.0); Mean Corpuscular Volume 87.6 fl (78.0-98.0); Mean Platelet Volume 9.4 fL (7.4-10.4); Platelet Count 190 10x3/uL (130-400); RBC Distribution Width 13.7 % (11.5-14.5); Red Blood Cell (RBC) Count 5.49 mill/uL (4.70-6.10); White Blood Cell (WBC) Count 12.7 10x3/uL (4.8-10.8)
[2023-01-05 19:21] LABS: Bilirubin Negative (Negative); Blood, Urine 2+ (Negative); CAUTI Indications for Culture Dysuria,urgency,freq; Clarity Clear (Clear); Glucose, Urine (Dipstick) Normal (Negative); Ketone, Urine Negative (Negative); Leukocyte 500 Leu/uL (Negative); Mucous/LPF Rare LPF (<2+); Nitrite Negative (Negative); Protein, Urine (Dipstick) Negative (Neg-Trace); Squamous Epithelial None Seen HPF (0-3); WBC/HPF Greater than 50 HPF (0-3)
[2023-01-05 19:28] LABS: Bacteria/HPF 1+ HPF (None Seen)
[2023-01-05 19:29] LABS: Urine Culture Reflex Yes Yes
[2023-01-05 19:40] LABS: Albumin 4.3 g/dL (3.5-5.0)
[2023-01-05 19:41] LABS: Chloride 104 mmol/L (98-107); Potassium 3.8 mmol/L (3.5-5.1); Sodium 138 mmol/L (136-145)
[2023-01-05 19:42] LABS: Calcium 9.6 mg/dL (7.8-10.44); Glucose 90 mg/dL (70-105)
[2023-01-05] MEDS ORDERED: fentaNYL 50 mcg/mL 1 mL Vial ONE ×2 (19:42)
[2023-01-05 19:43] LABS: Globulin 3.1 g/dL (2.4-3.5); Protein, Total 7.4 g/dL (6.0-8.3)
[2023-01-05 19:44] LABS: Anion Gap 14 mmol/L (10-20); Bilirubin, Total 0.4 mg/dL (0.2-1.2); Carbon Dioxide 24 mmol/L (22-29)
[2023-01-05] MEDS ORDERED: Piperacillin/Tazobactam 4.5 GM VIAL ONE (19:44)
[2023-01-05 19:46] LABS: BUN (Urea Nitrogen) 13 mg/dL (8.4-25.7); Calc. Creatinine Clearance 0 mL/min (70-130); Estimated GFR 96
[2023-01-05 19:48] LABS: ALT (SGPT) 21 U/L (8-55); AST (SGOT) 17 U/L (5-34); Lipase 16 U/L (8-78)
[2023-01-05 19:54] LABS: Alkaline Phosphatase 71 U/L (40-110)
[2023-01-05 20:11] LABS: SARS-CoV-2 NAA Rapid Test Not Detected (NotDetected)
[2023-01-05] MEDS ORDERED: Ipratropium/Albuterol 3 ML NEB ONE (22:02)
[2023-01-05] MEDS ORDERED: Dexamethasone 10 MG/ML VIAL ONE (22:02)
[2023-01-05 22:25] LABS: Lactic Acid 1.1 mmol/L (0.5-2.2)
== END 2023-01-05 22:30 | disposition home or self-care (01) ==
LOC: ERS 18:22
DX: N39.0 Urinary tract infection, site not specified (principal); I10 Essential (primary) hypertension; K21.9 Gastro-esophageal reflux disease without esophagitis; F17.210 Nicotine dependence, cigarettes, uncomplicated; Z20.822 Contact with and (suspected) exposure to COVID-19
CPT/HCPCS: 36415; 74177; 80053; 81001; 83605; 83690; 85025; 87040; 87077; 87086; 87186; 93005; 94760; 96365; 96366; 96375; 96376; J1100; J2405; J2543; J3010; J7620; Q9967

== ENCOUNTER 2023-12-09 18:46 | Emergency (ER) | payer BC, OTHER ==
[2023-12-09] MEDS ORDERED: Ketorolac Tromethamine 30 MG (1 mL) VIAL ONE (21:17)
[2023-12-09] MEDS ORDERED: Cyclobenzaprine 10 MG TAB ONE (21:17)
== END 2023-12-09 22:16 | disposition home or self-care (01) ==
LOC: ERS 18:46
DX: S09.90XA Unspecified injury of head, initial encounter (principal); S16.1XXA Strain of muscle, fascia and tendon at neck level, initial encounter; S30.0XXA Contusion of lower back and pelvis, initial encounter; I10 Essential (primary) hypertension; F17.210 Nicotine dependence, cigarettes, uncomplicated; W07.XXXA Fall from chair, initial encounter
CPT/HCPCS: 70450; 72072; 72100; 72125; 96372; J1885

== ENCOUNTER 2024-01-20 06:32 | Emergency (ER) | payer BC, OTHER ==
[2024-01-20] MEDS ORDERED: Boostrix 0.5 ML (Tdap) VIAL (>/=7 yrs of age) ONE (07:07)
[2024-01-20] MEDS ORDERED: Acetaminophen 500 MG TAB ONE (07:07)
== END 2024-01-20 07:22 | disposition home or self-care (01) ==
LOC: ERS 06:32
DX: S06.0X0A Concussion without loss of consciousness, initial encounter (principal); S01.21XA Laceration without foreign body of nose, initial encounter; I10 Essential (primary) hypertension; F17.210 Nicotine dependence, cigarettes, uncomplicated; W22.8XXA Striking against or struck by other objects, initial encounter; Z55.6 Problems related to health literacy; Z23 Encounter for immunization
CPT/HCPCS: 90471; 90715

== ENCOUNTER 2025-02-28 15:35 | Emergency (ER) | payer BC ==
[2025-02-28 19:02] LABS: #Basophils 0.04 10x3/uL (0.0-0.2); #Eosinophils 0.38 10x3/uL (0.0-0.7); #Monocytes 0.69 10x3/uL (0.11-0.59); #Neutrophils 4.62 10x3/uL (1.40-6.50); %Basophils 0.5 % (0.0-1.0); %Eosinophils 5.0 % (0.0-10.0); %Lymphocytes 24.4 % (21.0-51.0); %Monocytes 9.0 % (0.0-10.0); %Neutrophils 60.6 % (42.0-75.0); Hematocrit 49.2 % (42.0-52.0); Hemoglobin 16.3 g/dL (14.0-18.0); Mean Corpuscular Hemoglobin 29.2 pg (27.0-31.0); Mean Corpuscular Volume 88.2 fL (78.0-98.0); Platelet Count 230 10x3/uL (130-400); Red Blood Cell (RBC) Count 5.58 mill/uL (4.70-6.10); White Blood Cell (WBC) Count 7.63 10x3/uL (4.8-10.8)
[2025-02-28 19:03] LABS: ALT (SGPT) 20 U/L (Less than 45); AST (SGOT) 24 U/L (11-34); Albumin 4.0 g/dL (3.1-4.5); Alkaline Phosphatase 85 U/L (40-110); Anion Gap 13 mmol/L (10-20); BUN (Urea Nitrogen) 12 mg/dL (8.4-25.7); Bilirubin, Total 0.3 mg/dL (0.3-1.2); Calc. Creatinine Clearance 0 mL/min (70-130); Calcium 9.6 mg/dL (7.8-10.44); Carbon Dioxide 24 mmol/L (22-29); Chloride 104 mmol/L (98-107); Globulin 3.4 g/dL (2.4-3.5); Glucose 89 mg/dL (70-105); Potassium 4.2 mmol/L (3.5-5.1); Sodium 137 mmol/L (136-145)
== END 2025-02-28 19:28 | disposition home or self-care (01) ==
LOC: ERS 15:35
DX: M79.601 Pain in right arm (principal); I10 Essential (primary) hypertension; F17.210 Nicotine dependence, cigarettes, uncomplicated; Z86.73 Personal history of transient ischemic attack (TIA), and cerebral infarction without residual deficits
CPT/HCPCS: 70450; 72125; 80053; 85025